=== PATIENT | male | born 1975 | race Caucasian/White ===

== ENCOUNTER 2023-07-19 07:18 | Emergency (ER) | payer OTHER, SELFPAY ==
[2023-07-19 07:30] VITALS: BP 139/86
[2023-07-19 08:50] VITALS: BMI 30.9
[2023-07-19] MEDS: NSS 1000 IV (09:03)
[2023-07-19] MEDS: SOLU-CORTEF 200 MG IV (09:04)
[2023-07-19] MEDS: BENADRYL 50 MG IV (09:04)
[2023-07-19 09:06] LABS: Urine Albumin Negative (Neg - Trace); Urine Bilirubin Negative (Negative); Urine Character Clear (Clear); Urine Color Yellow; Urine Glucose Negative (Negative); Urine Ketone 2+ (Negative); Urine Leukocyte Negative (Negative); Urine Nitrite Negative (Negative); Urine Occult Blood Negative (Negative); Urine Urobilinogen Negative (Neg - 1+)
[2023-07-19 09:14] VITALS: BP 136/91
[2023-07-19 09:22] LABS: % Basophils 0.6 % (0-2); % Eosinophils 1.7 % (0-6); % Immature Granulocytes 0.2 % (0-0.5); % Monocytes 10.2 % (1.7-9.3); % Neutrophils 59.3 % (42.2-75.2); Absolute Eosinophils 0.1 10^3/uL (0-0.7); Absolute Lymphocytes 1.8 10^3/uL (1.2-3.4); Absolute Monocytes 0.7 10^3/uL (0.1-0.6); Absolute Neutrophils 3.9 10^3/uL (1.4-6.5); Hematocrit 43.2 % (39.0-52.0); Mean Corp Hgb Conc. 34.7 g/dL (33.0-37.0); Mean Corpuscular Hgb 29.6 pg (27.0-31.0); Mean Corpuscular Volume 85.2 fL (80.0-94.0); Mean Platelet Volume 9.4 fL (7.4-10.4); Nucleated Red Blood Cells % 0 % (-); Platelet Count 227 10^3/uL (130-400); Red Blood Cell Count 5.07 10^6/uL (4.70-6.10); Red Cell Dist. Width 12.2 % (11.5-14.5); White Blood Cell Count 6.6 10^3/uL (4.8-10.8)
[2023-07-19 09:33] LABS: ALT (SGPT) 26 U/L (0-50); AST (SGOT) 25 U/L (17-59); Albumin 4.4 g/dl (3.5-5.0); Alkaline Phosphatase 58 U/L (38-126); Blood Urea Nitrogen 14 mg/dl (9-20); Calcium 9.3 mg/dl (8.4-10.2); Carbon Dioxide 25 mmol/L (22-30); Chloride 106 mmol/L (98-107); Estimated Creatinine Clearance 108 ml/min; Glucose 91 mg/dl (70-99); Potassium 4.5 mmol/L (3.5-5.1); Sodium 137 mmol/L (135-145); Total Bilirubin 1.2 mg/dl (0.2-1.3); Total Protein 7.1 g/dl (6.3-8.2); eGFR > 60.00
--- NOTE | 2023-07-19 11:28 | ED.GENMED ---
History of Present Illness
General
Chief Complaint: Abdominal Pain
Source: patient and spouse
Exam Limitations: none
Time Seen by Provider: 07/19/23 07:47
Travel History
Have you had any contact with someone who has COVID-19?: No
Do you have any symptoms of coronavirus? Fever > 100 degrees, chills, cough, shortness of breath, sore throat, loss of taste or smell, muscle aches, or headache?: No
History of Present Illness
History of Present Illness:
48-year-old male who presents with left lower quad abdominal pain been ongoing for about 5 weeks. He states the last 5 days the pain has been worse. Patient states that he really has had pain daily for 5 weeks. He states the severity of which
seem to be up-and-down. He works as a dentist. He has had some loose stools. He initially saw his doctor thought maybe he was constipated. Patient states he is scheduled for colonoscopy upcoming. Patient did have a plain x-ray that he states
showed no bowel obstruction no fevers. Patient does state occasionally has been 'cold'. No shortness of breath. No injury.
Past History
Past History
ED Past Medical History: Hypercholesterolemia, Psychiatric (Anxiety) and Other (IVF)
ED Past Surgical History: Other (Right hernia repair)
Phy Exam
Physical Exam
Physical Exam:
CONSTITUTIONAL Patient alert and oriented to person, place and time. Well-appearing. Vital signs reviewed.
HEAD atraumatic, normocephalic.
EYES eyelids normal to inspection, Pupils equally round and reactive to light, Extraocular muscles intact, Conjunctiva normal, Sclera normal.
NECK normal range of motion, Trachea midline, no jugular venous distention.
RESPIRATORY CHEST No respiratory distress noted, Chest expansion equal, Bilateral breath sounds clear.
CARDIOVASCULAR regular rate and rhythm, Heart sounds normal.
ABDOMEN mild left lower quadrant tenderness, no hernias palpated, groin normal, Bowel sounds normal. No distention.
BACK normal inspection, no obvious deformities
UPPER EXTREMITY range of motion normal, Motor strength normal, no cyanosis, no edema.
LOWER EXTREMITY range of motion normal, Motor strength normal, no cyanosis, no edema.
NEURO Speech normal, No focal motor deficits, Jackson coma scale 15, Memory normal, Cranial Nerves intact to screening exam.
SKIN skin warm, dry, and normal in color.
PSYCHIATRIC patient oriented to person place and time, Normal affect.
Course
Orders/Labs/Results
Orders:
Orders
07/19/23 08:26
0.9% Sodium Chloride 1000 ml [Nss] 1,000 ml IV BOLUS
Diphenhydramine [Benadryl] 50 mg IV NOW STA
Hydrocortisone Sod Succinate [Solu-Cortef] 200 mg IV NOW STA
07/19/23 08:27
CT Abd/Pel (IV only)-DH only Urgent
Comment:
Reason For Exam: LLQ abd pain
07/19/23 08:52
Urinalysis Reflex To Culture Urgent
Date Specimen was Collected: 07/19/23
Time Specimen was Collected: 08:51
07/19/23 08:55
Complete Blood Count/With Diff Urgent
Comprehensive Metabolic Panel Urgent
Abnormal Lab Results
07/19/23 07/19/23
08:52 08:55
Absolute Monos (auto) 0.7 H 10^3/uL
(0.1-0.6)
Monocytes % 10.2 H %
(1.7-9.3)
Urine Ketones 2+ A
(Negative)
07/19/23 08:55
07/19/23 08:55
Vital Signs
Initial and Last Documented VS:
Initial Vital Signs
Temp Pulse Resp BP Pulse Ox
98.2 F 72 20 139/86 99
07/19/23 07:30 07/19/23 07:30 07/19/23 07:30 07/19/23 07:30 07/19/23 07:30
Last Documented Vital Signs
Temp Pulse Resp BP Pulse Ox
98.2 F 66 16 136/91 99
07/19/23 07:30 07/19/23 09:14 07/19/23 09:14 07/19/23 09:14 07/19/23 07:30
MDM/Problems Addressed
MDM/Problems Addressed:
Abdominal pain, diverticulosis
*Radiology
Radiology exam reviewed: preliminary read by ED provider (No free air)
*Pulse Oximetry
Patient hypoxic: no
*Critical Care Note
Total Time (30-74mins, 75-104mins- exclusive of procedures): Not Applicable
Data Reviewed
Source: patient and spouse
Prescriptions/Medications Considered But Not Given:
Consider antibiotics for diverticulitis but no evidence diverticulitis by CT and white count normal
Patient Management
Escalation/DeEscalation of care consider admission/obs:
5 weeks of symptoms. Patient appears well. Recommended outpatient follow-up as planned. Already has a colonoscopy planned.
ED Attending Note
-
Portions of this chart may have been created with voice recognition software.� Occasional wrong word or��sound alike� substitutions may have occurred due to the inherent limitations of voice recognition software.
Discharge Plan
Departure
Patient Disposition: Home (Routine Discharge)
Date of Disposition: 07/19/23
Time of Disposition: 11:34
Patient with high blood pressure during this ER visit?: Yes
Discharge Problem:
Abdominal pain
Instructions: Abdominal Pain
Referrals:
Joseluis Mackey MD [Family Provider] -
Activity Restrictions/Additional Instructions:
Please see your doctor as planned in follow-up. Return immediately for worsening pain, bloody stools, fevers, or any other concerns.
Interventions
Interventions:
IW-Hxamxz-Wlycwdevzy Assessment Last Done: 07/19/23 09:21
[2023-07-19 11:43] VITALS: BP 122/82
== END 2023-07-19 12:08 | disposition home or self-care (01) ==
LOC: EMR 07:18
PROVIDERS: EMERGENCY PHYSICIAN Emergency Medicine; FAMILY PHYSICIAN Internal Medicine
DX: R10.9 Unspecified abdominal pain (principal); E78.00 Pure hypercholesterolemia, unspecified; F41.9 Anxiety disorder, unspecified
CPT/HCPCS: 99284; 96374; 96375; 96361; 74177; 80053; 81003; 85025; Q9967